=== PATIENT | male | born 1950 | race Caucasian/White ===

== ENCOUNTER 2023-08-30 09:19 | Day surgery (SDC) | payer MEDICARE, BC ==
[~2023-08-30] VITALS: Ht 185.4 cm; Wt 93.6 kg
[~2023-08-30 09:19] MED LIST: BENA1TAB24 PO; BSS IRRIG/VANCO(10MG)/TOBRA(5MG)/EPINEPH(1:1000-0.5CC)500ML BAG-ORONLY As Ordered ONE; CEFUROXIME 1MG/0.1ML INTRACAMERAL INJ As Ordered ONE; LIDOCAINE 1% SDV 5ML VIAL As Ordered ONE; PHENYLEPHRINE 10% OPHTH SOL 5ML OD PRN; THERTAB52 PO
[2023-08-30] MEDS: PHENYLEPHRINE 2.5% OPHTH SOL 2ML OD SCH (10:13)
[2023-08-30] MEDS: ATROPINE SULFATE 1% OPHTH SOLN 2ML BTL OD SCH (10:13)
[2023-08-30] MEDS: OFLOXACIN 0.3 % (OCUFLOX) OPTH SOL 5ML OD ONE (10:13)
[2023-08-30] MEDS: TROPICAMIDE 1% OPHTH SOLN 15ML OD SCH (10:13)
[2023-08-30] MEDS: LIDOCAINE 3.5 % 1ML OPHTH TOPICAL GEL OU ONE (10:14)
[2023-08-30] MEDS ORDERED: MIDAZOLAM INJ 2MG/2ML VIAL As Ordered ONE (11:19)
[2023-08-30] MEDS ORDERED: fentaNYL 100 MCG/2 ML INJECTION As Ordered ONE (11:19)
[2023-08-30 11:46] VITALS: BP 131/72; TEMP 97.2; O2SAT 100
== END 2023-08-30 12:13 | disposition home or self-care (01) ==
LOC: M SDC 09:19
PROVIDERS: ATTEND Ophthalmology
DX: H25.11 Age-related nuclear cataract, right eye (principal); H57.03 Miosis; I10 Essential (primary) hypertension; Z88.0 Allergy status to penicillin; Z79.899 Other long term (current) drug therapy
CPT/HCPCS: 66982; 92015; J0697; J2250; J3010; V2632